=== PATIENT | female | born 1970 | race Hispanic/Latino ===

== ENCOUNTER 2017-08-29 12:07 | Outpatient (CLI) | payer OTHER ==
[2017-08-29 12:28] LABS: #Basophils 0.1 thou/uL (0.0-0.2); #Lymphocytes 2.2 thou/uL (1.20-3.40); #Monocytes 0.5 thou/uL (0.11-0.59); %Basophils 0.7 % (0.0-1.0); %Eosinophils 0.4 % (0.0-10.0); %Monocytes 4.9 % (0.0-10.0); %Neutrophils 74.1 % (42.0-75.0); Hemoglobin 12.5 g/dL (12.0-16.0); Mean Corpuscular HGB CONC 31.8 g/dL (32.0-36.0); Mean Corpuscular Hemoglobin 29.5 pg (27.0-31.0); Mean Corpuscular Volume 92.7 fl (81.0-99.0); Mean Platelet Volume 7.7 fL (7.4-10.4); Platelet Count 302 thou/uL (130-400); RBC Distribution Width 12.5 % (11.5-14.5); Red Blood Cell (RBC) Count 4.24 mill/uL (4.20-5.40); White Blood Cell (WBC) Count 10.8 thou/uL (4.8-10.8)
[2017-08-29 12:58] LABS: ALT (SGPT) 18 U/L (8-55); AST (SGOT) 17 U/L (5-34); Albumin 4.2 g/dL (3.5-5.0); Alkaline Phosphatase 96 U/L (40-150); Anion Gap 11 mmol/L (10-20); BUN (Urea Nitrogen) 8 mg/dL (7.0-18.7); Bilirubin, Total 0.8 mg/dL (0.2-1.2); Calc. Creatinine Clearance 0 mL/min (70-130); Calcium 9.2 mg/dL (7.8-10.44); Carbon Dioxide 27 mmol/L (22-29); Cardiac Risk 4.1 (Less than 4.5); Chloride 103 mmol/L (98-107); Cholesterol 248 mg/dl (< 200 Desired); Estimated GFR-MDRD Greater than 90; Globulin 3.1 g/dL (2.4-3.5); Glucose 95 mg/dL (70-105); HDL Cholesterol 61 mg/dL (>60 Neg Risk); LDL Cholesterol, Calculated 163 mg/dL; Protein, Total 7.3 g/dL (6.0-8.3); Sodium 137 mmol/L (136-145); Triglycerides 121 mg/dL (Less than 150)
[2017-08-29] MEDS ORDERED: Iopamidol 370 76% 100 ML VIAL ONE (13:24)
--- NOTE | 2017-08-29 15:08 | CT ---
ABDOMEN CT WITH CONTRAST PELVIC CT WITH CONTRAST: HISTORY: Right lower quadrant pain. COMPARISON: None. TECHNIQUE: An abdomen and pelvic CT are performed with IV and enteric contrast. Coronal reformatted images are submitted for interpretation. FINDINGS: ABDOMEN CT: Lung bases are clear. Normal heart size. No pericardial effusion. The descending thoracic aorta an d abdominal aorta have a normal caliber. No periaortic fat stranding. Symmetric attenuation of the psoas muscles. Nonspecific, nonenlarged retroperitoneal lymph nodes. No gastrohepatic, retrocrural, or periportal lymphadenopathy. Ventral abdominal wall hernia containing mesenteric fat. No bowel obstruction. Hypodensity in the liver with attenuation coefficient of 13 Hounsfield units, compatible with a 1.8 c m cyst. Hypodensity in the posterior segment right hepatic lobe is too small to characterize but is statistically also favored to be a cyst. The spleen, pancreas, and adrenal glands are unremarkable. Symmetric enhancement of the kidneys. Bilaterally, no obstructive uropathy. Gastric mucosa, duodenum, and multiple normal-caliber small bowel loops are noted. The ileocecal moira ction is normal. Scattered fecal material in the nondistended, nondilated colon. A normal-appearing appendix is identified measuring 0.6 cm with minimal periappendiceal fat stranding. The possibility of an early appendicitis at the base of the appendix could not be excluded. PELVIC CT: The uterus is unremarkable. Left adnexa is unremarkable. Hypodensity in the right adnexa is compati ble with a cyst associated with the right ovary measuring 2.4 cm. The urinary bladder is unremarkabl e. There is mild stranding of the pericolonic fat at the level of the sigmoid colon. The possibilit y of diverticulitis could not be excluded. There is evidence of diverticulosis in the right hemicolo n. IMPRESSION: 1. Normal-caliber appendix. 2. Diverticulitis involving the sigmoid colon without evidence of abscess or perforation. POS: [facility]
[2017-08-29 19:55] LABS: Bilirubin Negative (Negative); Blood, Urine Negative (Negative); Clarity CLOUDY (Clear); Glucose, Urine (Dipstick) Negative (Negative); Leukocyte Moderate (Negative); Nitrite Negative (Negative); Protein, Urine (Dipstick) Negative (Neg-Trace); Specific Gravity, Urine 1.017 (1.002-1.036); Urobilinogen 0.2 mg/dL (0.2-1.0)
[2017-08-29 19:59] LABS: Bacteria/HPF 1+ HPF (None Seen); Hyaline Casts/LPF 7-10 HYALINE CAST LPF (0-3 Hyaline); Pathc Cast-AUWi Flag 1.89 (0-2.49); RBC/HPF 0-3 HPF (0-3); Squamous Epithelial 21-50 HPF (0-3)
== END 2017-08-29 12:08 | disposition home or self-care (01) ==
LOC: CT 12:07
PROVIDERS: ATTEND Internal Medicine
DX: R10.9 Unspecified abdominal pain (principal); K57.32 Diverticulitis of large intestine without perforation or abscess without bleeding
CPT/HCPCS: 36415; 74177; 80053; 80061; 81001; 85025; 87086

== ENCOUNTER 2017-10-27 09:42 | Outpatient (CLI) | payer OTHER | END 2017-10-27 09:43 | disposition home or self-care (01) | LOC: BICULT 09:42 | PROVIDERS: ATTEND Internal Medicine | DX: N83.201 Unspecified ovarian cyst, right side (principal) | CPT/HCPCS: 76856 ==

== ENCOUNTER 2018-01-27 11:31 | Outpatient (CLI) | payer OTHER | END 2018-01-27 11:32 | disposition home or self-care (01) | LOC: BICMAMMO 11:31 | PROVIDERS: ATTEND Internal Medicine | DX: Z12.31 Encounter for screening mammogram for malignant neoplasm of breast (principal); R92.1 Mammographic calcification found on diagnostic imaging of breast | CPT/HCPCS: 77063; 77067 ==

== ENCOUNTER 2019-07-02 10:29 | Outpatient (CLI) | payer OTHER | END 2019-07-02 10:30 | disposition home or self-care (01) | LOC: DTY/OP 10:29 | PROVIDERS: ATTEND Internal Medicine | DX: E66.3 Overweight (principal) | CPT/HCPCS: 97802 ==

== ENCOUNTER 2019-09-18 15:52 | Outpatient (CLI) | payer OTHER ==
--- NOTE | 2019-09-18 16:21 | MMO ---
Bilateral MAMMO Bilat Screen [facility]. CLINICAL HISTORY: Patient is 49 years old and is seen for screening. The patient has no family history of breast cancer. The patient has no personal history of cancer. VIEWS: The views performed were: bilateral craniocaudal with tomosynthesis and bilateral mediolateral oblique with tomosynthesis. FILMS COMPARED: The present examination has been compared to prior imaging studies performed at [facility] on 04/03/2013, 09/24/2014, 10/16/2015 and 01/27/2018. This study has been interpreted with the assistance of computer-aided detection. MAMMOGRAM FINDINGS: The breasts are heterogeneously dense, which could obscure a lesion on mammography. There are stable benign appearing calcifications seen in both breasts. There are no suspicious masses, suspicious calcifications, or new areas of architectural distortion. IMPRESSION: THERE IS NO MAMMOGRAPHIC EVIDENCE OF MALIGNANCY. A ROUTINE FOLLOW-UP MAMMOGRAM IN 1 YEAR IS RECOMMENDED. THE RESULTS OF THIS EXAM WERE SENT TO THE PATIENT. ACR BI-RADS Category 2 - Benign finding MAMMOGRAPHY NOTE: 1. A negative mammogram report should not delay a biopsy if a dominant of clinically suspicious mass is present. 2. Approximately 10% to 15% of breast cancers are not detected by mammography. 3. Adenosis and dense breasts may obscure an underlying neoplasm. Reported by: RODO SUBRAMANIAN MD Electonically Signed: [id number]
== END 2019-09-18 15:53 | disposition home or self-care (01) ==
LOC: BICMAMMO 15:52
PROVIDERS: ATTEND Internal Medicine
DX: Z12.31 Encounter for screening mammogram for malignant neoplasm of breast (principal)
CPT/HCPCS: 77063; 77067

== ENCOUNTER 2022-03-26 13:28 | Outpatient (CLI) | payer BC | END 2022-03-26 13:29 | disposition home or self-care (01) | LOC: BICMAMMO 13:28 | PROVIDERS: ATTEND Internal Medicine | DX: Z12.31 Encounter for screening mammogram for malignant neoplasm of breast (principal) | CPT/HCPCS: 77063; 77067 ==

== ENCOUNTER 2023-04-21 10:26 | Outpatient (CLI) | payer BC ==
[~2023-04-21 10:26] MED LIST: GASTROGRAFIN 30 ML BOT ONE; Iopamidol 370 76% 100 ML VIAL ONE
== END 2023-04-21 10:27 | disposition home or self-care (01) ==
LOC: CT 10:26
PROVIDERS: ATTEND Internal Medicine
DX: R10.32 Left lower quadrant pain (principal); K57.20 Diverticulitis of large intestine with perforation and abscess without bleeding
CPT/HCPCS: 74177

== ENCOUNTER 2023-04-21 13:47 | Emergency (ER) | payer BC ==
[2023-04-21 15:27] LABS: Bilirubin Negative (Negative); Blood, Urine Negative (Negative); CAUTI Indications for Culture Pelvic or flank pain; Clarity Clear (Clear); Glucose, Urine (Dipstick) Normal (Negative); Ketone, Urine Negative (Negative); Leukocyte Negative Leu/uL (Negative); Nitrite Negative (Negative); Protein, Urine (Dipstick) Negative (Neg-Trace); RBC/HPF 0-3 HPF (0-3); Specific Gravity, Urine 1.019 (1.002-1.036); Urobilinogen Normal mg/dL (Less than 2); WBC/HPF 0-3 HPF (0-3)
[2023-04-21 15:28] LABS: Bacteria/HPF None Seen HPF (None Seen); Squamous Epithelial None Seen HPF (0-3)
[2023-04-21 15:29] LABS: Urine Culture Reflex No No
[2023-04-21] MEDS ORDERED: Ketorolac Tromethamine 30 MG/ML VIAL ONE (15:40)
[2023-04-21 15:41] LABS: #Eosinphils 0.1 thou/uL (0.0-0.7); #Monocytes 0.4 thou/uL (0.11-0.59); #Neutrophils 4.3 thou/uL (1.40-6.50); %Basophils 0.4 % (0.0-1.0); %Eosinophils 1.7 % (0.0-10.0); %Monocytes 6.2 % (0.0-10.0); %Neutrophils 62.6 % (42.0-75.0); Hematocrit 37.8 % (36.0-47.0); Hemoglobin 12.3 g/dL (12.0-16.0); Mean Corpuscular HGB CONC 32.5 g/dL (32.0-36.0); Mean Corpuscular Volume 92.2 fl (78.0-98.0); Mean Platelet Volume 10.4 fL (7.4-10.4); Platelet Count 250 10x3/uL (130-400); RBC Distribution Width 12.6 % (11.5-14.5); White Blood Cell (WBC) Count 6.9 10x3/uL (4.8-10.8)
[2023-04-21 16:03] LABS: ALT (SGPT) 19 U/L (8-55); AST (SGOT) 18 U/L (5-34); Albumin 4.4 g/dL (3.5-5.0); Alkaline Phosphatase 89 U/L (40-110); Anion Gap 12 mmol/L (10-20); BUN (Urea Nitrogen) 16 mg/dL (9.8-20.1); Bilirubin, Total 0.6 mg/dL (0.2-1.2); Calc. Creatinine Clearance 0 mL/min (70-130); Calcium 9.8 mg/dL (7.8-10.44); Carbon Dioxide 28 mmol/L (22-29); Chloride 101 mmol/L (98-107); Estimated GFR 88; Globulin 2.9 g/dL (2.4-3.5); Glucose 95 mg/dL (70-105); Potassium 3.9 mmol/L (3.5-5.1); Protein, Total 7.3 g/dL (6.0-8.3); Sodium 137 mmol/L (136-145)
== END 2023-04-21 16:36 | disposition home or self-care (01) ==
LOC: ERS 13:47
DX: K57.20 Diverticulitis of large intestine with perforation and abscess without bleeding (principal); E78.5 Hyperlipidemia, unspecified; Z79.899 Other long term (current) drug therapy
CPT/HCPCS: 74177; 80053; 81001; 83605; 85025; 93005; 96361; 96374; J1885

== ENCOUNTER 2023-05-09 14:12 | Outpatient (CLI) | payer BC | END 2023-05-09 14:13 | disposition home or self-care (01) | LOC: BICMAMMO 14:12 | PROVIDERS: ATTEND Internal Medicine | DX: Z12.31 Encounter for screening mammogram for malignant neoplasm of breast (principal) | CPT/HCPCS: 77063; 77067 ==

== ENCOUNTER 2024-05-11 08:30 | Outpatient (CLI) | payer BC | END 2024-05-11 08:31 | disposition home or self-care (01) | LOC: BICMAMMO 08:30 | PROVIDERS: ATTEND Internal Medicine | DX: Z12.31 Encounter for screening mammogram for malignant neoplasm of breast (principal) | CPT/HCPCS: 77063; 77067 ==